=== PATIENT | female | born 1985 | race African-American/Black ===

== ENCOUNTER 2018-02-09 22:21 | Emergency (ER) | payer OTHER | END 2018-02-09 23:08 | disposition left against medical advice (07) | LOC: ER 22:21 | DX: M54.5 Low back pain (principal); Z53.21 Procedure and treatment not carried out due to patient leaving prior to being seen by health care provider ==

== ENCOUNTER 2018-06-10 04:04 | Emergency (ER) | payer OTHER ==
[~2018-06-10] VITALS: Ht 157.5 cm; Wt 123.8 kg
[~2018-06-10 04:04] MED LIST: CYCL10TA2 PO; HYDR-923 PO; PROM118S3 PO; PROM118S5; VENTOLIN HFA18 GM
[2018-06-10 04:15] VITALS: BP 125/76
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
--- NOTE | 2018-06-10 07:40 | RAD ---
Left wrist, 3 views, 06/10/2018: HISTORY: Wrist pain, injury No fracture or dislocation is identified. There is minimal subcutaneous edema. IMPRESSION: No acute bony abnormality is detected. Electronically signed by: Chandan Mckay MD (06/10/2018 7:37 AM) [facility]
== END 2018-06-10 05:18 | disposition home or self-care (01) ==
LOC: ER 04:04
DX: S63.502A Unspecified sprain of left wrist, initial encounter (principal); Z86.718 Personal history of other venous thrombosis and embolism; Z86.711 Personal history of pulmonary embolism; Z88.5 Allergy status to narcotic agent; Z91.041 Radiographic dye allergy status; Y08.89XA Assault by other specified means, initial encounter; Y93.89 Activity, other specified; Y92.89 Other specified places as the place of occurrence of the external cause; Y99.8 Other external cause status
CPT/HCPCS: 29125; 73110; 99284-25